=== PATIENT | male | born 1945 | race Native Hawaiian/Other Pacific Islander ===

== ENCOUNTER 2016-08-02 07:45 | Outpatient (CLI) | payer OTHER | END 2016-08-02 19:27 | disposition home or self-care (01) | LOC: LABW 07:45 | PROVIDERS: Internal Medicine Clinical Cardiac Electrophysiology | DX: E78.00 Pure hypercholesterolemia, unspecified (principal) | CPT/HCPCS: 36415; 80061; 80076 ==

== ENCOUNTER 2017-05-15 07:31 | Outpatient (CLI) | payer OTHER | END 2017-05-15 19:07 | disposition home or self-care (01) | LOC: LABW 07:31 | PROVIDERS: Internal Medicine Clinical Cardiac Electrophysiology | DX: E78.00 Pure hypercholesterolemia, unspecified (principal) | CPT/HCPCS: 36415; 80061 ==

== ENCOUNTER 2017-12-09 07:44 | Outpatient (CLI) | payer OTHER ==
[2018-01-20] MEDS ORDERED: METFTAB PO (08:42)
[2018-01-20] MEDS ORDERED: ASA LOW DOSE81 MG PO (08:43)
[2018-01-20] MEDS ORDERED: OMEPRAZOLE40 MG PO (08:44)
[2018-01-20] MEDS ORDERED: LIPITOR10 MG PO (08:44)
[2018-01-20] MEDS ORDERED: ATENOLOL100 M1 PO (08:45)
[2018-01-20] MEDS ORDERED: CARDIZEM60 M1 PO (08:45)
[2018-01-20] MEDS ORDERED: MOBIC15 MG PO (08:46)
[2018-01-20] MEDS ORDERED: XANAX XR1 MG OR (08:48)
== END 2017-12-09 23:10 | disposition home or self-care (01) ==
LOC: LABW 07:44
PROVIDERS: Internal Medicine Clinical Cardiac Electrophysiology
DX: E78.00 Pure hypercholesterolemia, unspecified (principal)
CPT/HCPCS: 36415; 80061

== ENCOUNTER 2018-01-20 10:48 | Outpatient (CLI) | payer OTHER ==
[~2018-01-20 10:48] MED LIST: ASA LOW DOSE81 MG PO; ATENOLOL100 M1 PO; CARDIZEM60 M1 PO; LIPITOR10 MG PO; METFTAB PO; MOBIC15 MG PO; OMEPRAZOLE40 MG PO; XANAX XR1 MG OR
== END 2018-01-20 12:06 | disposition short-term general hospital (02) ==
LOC: AMB 10:48
DX: I63.9 Cerebral infarction, unspecified (principal); R53.1 Weakness
CPT/HCPCS: A0425; A0427

== ENCOUNTER 2018-02-18 09:38 | Emergency (ER) | payer OTHER ==
[~2018-02-18] VITALS: Ht 160 cm; Wt 70.3 kg
[2018-02-18 09:40] VITALS: TEMP 97.9
[2018-02-18 10:18] LABS: SODIUM 139 mmol/L (136-145)
[2018-02-18 10:20] LABS: PLATELET COUNT 191 K/uL (142-355)
[2018-02-18 12:09] VITALS: BP 158/78
== END 2018-02-18 12:09 | disposition home or self-care (01) ==
LOC: ED 09:38
PROVIDERS: Emergency Medicine
DX: R42 Dizziness and giddiness (principal)
CPT/HCPCS: 36415; 80053; 82550; 82553; 84484; 85027; 93005; 99284

== ENCOUNTER 2018-11-08 13:00 | Emergency (ER) | payer OTHER ==
[~2018-11-08] VITALS: Ht 160 cm; Wt 70.3 kg
[2018-11-08] MEDS ORDERED: TESTOSTERON PO (13:15)
[2018-11-08] MEDS ORDERED: VITAMIN D31000 UNIT PO (13:15)
[2018-11-08 13:45] LABS: PLATELET COUNT 219 K/uL (142-355)
[2018-11-08 13:52] LABS: POTASSIUM 3.9 mmol/L (3.6-5.2)
[2018-11-08 14:08] LABS: PARTIAL THROMBOPLASTIN TIME 26.6 SECONDS (24.5-33.6)
[2018-11-08 15:35] VITALS: BP 117/71; TEMP 98.5
== END 2018-11-08 15:40 | disposition home or self-care (01) ==
LOC: ED 13:00
PROVIDERS: Family Medicine
DX: R51 Headache (principal); R42 Dizziness and giddiness; G45.9 Transient cerebral ischemic attack, unspecified
CPT/HCPCS: 80053; 81000; 85027; 85610; 85730; 99283

== ENCOUNTER 2019-05-03 14:20 | Outpatient (CLI) | payer OTHER ==
[~2019-05-03 14:20] MED LIST changes: +TESTOSTERON PO; +VITAMIN D31000 UNIT PO
[2019-05-03 14:52] LABS: PLATELET COUNT 230 K/uL (142-355)
[2019-05-03 15:18] LABS: POTASSIUM 4.9 mmol/L (3.6-5.2)
== END 2019-05-03 19:31 | disposition home or self-care (01) ==
LOC: LAB 14:20
PROVIDERS: Nurse Practitioner Family
DX: Z00.00 Encounter for general adult medical examination without abnormal findings (principal); K21.9 Gastro-esophageal reflux disease without esophagitis; E11.9 Type 2 diabetes mellitus without complications; E78.00 Pure hypercholesterolemia, unspecified; F41.8 Other specified anxiety disorders; I10 Essential (primary) hypertension; N40.0 Benign prostatic hyperplasia without lower urinary tract symptoms
CPT/HCPCS: 80053; 80061; 83036; 84153; 84439; 84443; 85027

== ENCOUNTER 2020-02-09 12:47 | Outpatient (CLI) | payer OTHER | END 2020-02-10 00:02 | disposition home or self-care (01) | LOC: LAB 12:47 | DX: U07.1 COVID-19 (principal); R09.81 Nasal congestion; R51 Headache | CPT/HCPCS: 87635; G2023; U0003 ==

== ENCOUNTER 2020-02-18 16:40 | Emergency (ER) | payer OTHER ==
[~2020-02-18] VITALS: Ht 160 cm; Wt 70.3 kg
[2020-02-18 16:40] VITALS: TEMP 98.8
[2020-02-18 17:15] LABS: PLATELET COUNT 377 K/uL (142-355)
[2020-02-18 17:31] LABS: PARTIAL THROMBOPLASTIN TIME 22.7 SECONDS (24.5-33.6)
[2020-02-18 17:42] LABS: POTASSIUM 3.9 mmol/L (3.6-5.2); SODIUM 134 mmol/L (136-145)
[2020-02-18 20:05] VITALS: BP 150/79
== END 2020-02-18 20:05 | disposition home or self-care (01) ==
LOC: ED 16:40
PROVIDERS: Family Medicine
DX: G45.9 Transient cerebral ischemic attack, unspecified (principal); I63.9 Cerebral infarction, unspecified
CPT/HCPCS: 80053; 81000; 84484; 85027; 85610; 85730; 93005; 99284

== ENCOUNTER 2020-02-23 08:52 | Outpatient (CLI) | payer OTHER | END 2020-02-23 20:11 | disposition home or self-care (01) | LOC: MRI 08:52 | DX: G45.9 Transient cerebral ischemic attack, unspecified (principal); I63.9 Cerebral infarction, unspecified; R47.81 Slurred speech; R51 Headache; R13.10 Dysphagia, unspecified | CPT/HCPCS: A9576 ==

== ENCOUNTER 2020-02-23 21:10 | Emergency (ER) | payer OTHER ==
[~2020-02-23] VITALS: Ht 160 cm; Wt 70.3 kg
[2020-02-23 21:28] LABS: PLATELET COUNT 243 K/uL (142-355)
[2020-02-23 21:33] LABS: POTASSIUM 3.2 mmol/L (3.6-5.2); SODIUM 135 mmol/L (136-145)
[2020-02-23 22:50] VITALS: BP 128/75; TEMP 98.6
== END 2020-02-23 22:50 | disposition home or self-care (01) ==
LOC: ED 21:10
PROVIDERS: Emergency Medicine
DX: I10 Essential (primary) hypertension (principal); R00.0 Tachycardia, unspecified; R42 Dizziness and giddiness
CPT/HCPCS: 36415; 80053; 81000; 82550; 82553; 84484; 85027; 93005; 96374; 96375; 99284; J2060; J2405; J3490

== ENCOUNTER 2020-02-25 19:13 | Emergency (ER) | payer OTHER ==
[~2020-02-25] VITALS: Ht 160 cm; Wt 71.2 kg
[2020-02-25 19:35] VITALS: TEMP 98.5
[2020-02-25 21:59] VITALS: BP 139/68
== END 2020-02-25 22:00 | disposition home or self-care (01) ==
LOC: ED 19:13
DX: I10 Essential (primary) hypertension (principal)
CPT/HCPCS: 99282

== ENCOUNTER 2020-03-15 22:31 | Emergency (ER) | payer OTHER ==
[~2020-03-15] VITALS: Ht 160 cm; Wt 68.0 kg
[2020-03-16 00:04] LABS: PLATELET COUNT 254 K/uL (142-355)
[2020-03-16 00:12] LABS: POTASSIUM 3.9 mmol/L (3.6-5.2); SODIUM 132 mmol/L (136-145)
[2020-03-16 01:45] VITALS: BP 121/65; TEMP 97.7
== END 2020-03-16 01:45 | disposition home or self-care (01) ==
LOC: ED 22:31
PROVIDERS: Emergency Medicine Emergency Medical Services
DX: R42 Dizziness and giddiness (principal); I10 Essential (primary) hypertension
CPT/HCPCS: 36415; 80053; 84443; 84484; 85027; 93005; 96375; 99284; J2405; J3490

== ENCOUNTER 2020-03-16 14:44 | Outpatient (CLI) | payer OTHER | END 2020-03-16 20:01 | disposition home or self-care (01) | LOC: MRI 14:44 | DX: G45.1 Carotid artery syndrome (hemispheric) (principal); I63.9 Cerebral infarction, unspecified ==

== ENCOUNTER 2020-08-04 17:00 | Emergency (ER) | payer OTHER ==
[~2020-08-04] VITALS: Ht 160 cm; Wt 68.0 kg
[2020-08-04 17:43] LABS: PLATELET COUNT 222 K/uL (142-355)
[2020-08-04 17:50] LABS: POTASSIUM 3.6 mmol/L (3.6-5.2); SODIUM 134 mmol/L (136-145)
[2020-08-04 19:15] VITALS: BP 155/81; TEMP 98.1
== END 2020-08-04 19:15 | disposition home or self-care (01) ==
LOC: ED 17:00 → EDBD 17:00 → ED 19:15
PROVIDERS: Family Medicine
DX: R55 Syncope and collapse (principal); I10 Essential (primary) hypertension
CPT/HCPCS: 80053; 81000; 82550; 84484; 85027; 93005; 99283

== ENCOUNTER 2020-08-24 10:30 | Outpatient (CLI) | payer OTHER | END 2020-08-24 22:11 | disposition home or self-care (01) | LOC: EDBD 10:30 → RESP 10:30 | PROVIDERS: ATTEND Specialist | DX: R55 Syncope and collapse (principal) ==

== ENCOUNTER 2020-08-30 14:04 | Emergency (ER) | payer OTHER ==
[~2020-08-30] VITALS: Ht 160 cm; Wt 77.2 kg
[2020-08-30 14:04] VITALS: TEMP 98.5
[2020-08-30 14:35] LABS: PLATELET COUNT 261 K/uL (142-355)
[2020-08-30 14:38] LABS: POTASSIUM 4.2 mmol/L (3.6-5.2); SODIUM 129 mmol/L (136-145)
[2020-08-30 17:03] VITALS: BP 117/611
== END 2020-08-30 17:03 | disposition home or self-care (01) ==
LOC: ED 14:04
PROVIDERS: Family Medicine
DX: I10 Essential (primary) hypertension (principal); E87.1 Hypo-osmolality and hyponatremia
CPT/HCPCS: 36415; 80053; 82550; 82553; 83880; 84484; 85027; 93005; 96360; 96361; 99284

== ENCOUNTER 2020-11-01 12:31 | Day surgery (SDC) | payer OTHER ==
[2020-10-30 09:52] LABS: POTASSIUM 4.6 mmol/L (3.6-5.2)
[2020-10-30 09:57] LABS: PLATELET COUNT 203 K/uL (142-355)
[2020-10-30 10:30] LABS: PARTIAL THROMBOPLASTIN TIME 25.5 SECONDS (24.5-33.6)
== END 2020-11-01 15:10 | disposition home or self-care (01) ==
LOC: OR 12:31
PROVIDERS: ATTEND Internal Medicine Gastroenterology
PROC: 0DB68ZZ Excision of Stomach, Via Natural or Artificial Opening Endoscopic (ICD-10-PCS; principal; 2020-11-01)
PROC: 0D738ZZ Dilation of Lower Esophagus, Via Natural or Artificial Opening Endoscopic (ICD-10-PCS; 2020-11-01)
DX: K21.00 Gastro-esophageal reflux disease with esophagitis, without bleeding (principal); K22.4 Dyskinesia of esophagus; K22.2 Esophageal obstruction; K29.50 Unspecified chronic gastritis without bleeding; R13.19 Other dysphagia; K25.9 Gastric ulcer, unspecified as acute or chronic, without hemorrhage or perforation; Z20.822 Contact with and (suspected) exposure to COVID-19
CPT/HCPCS: 80053; 85027; 85610; 85730; 87635; J2704; U0003

== ENCOUNTER 2020-11-22 11:02 | Day surgery (SDC) | payer OTHER ==
[~2020-11-22] VITALS: Ht 30.5 cm; Wt 0.5 kg
== END 2020-11-22 13:47 | disposition home or self-care (01) ==
LOC: OR 11:02
PROVIDERS: ATTEND Internal Medicine Gastroenterology
PROC: 0DBH8ZZ Excision of Cecum, Via Natural or Artificial Opening Endoscopic (ICD-10-PCS; principal; 2020-11-22)
DX: K63.5 Polyp of colon (principal); K57.30 Diverticulosis of large intestine without perforation or abscess without bleeding; K64.8 Other hemorrhoids; Z20.822 Contact with and (suspected) exposure to COVID-19
CPT/HCPCS: 87635; J2001; J2704; U0003

== ENCOUNTER 2021-03-28 11:31 | Outpatient (CLI) | payer OTHER | END 2021-03-28 21:52 | disposition home or self-care (01) | LOC: US 11:31 | PROVIDERS: ATTEND Nurse Practitioner Family | DX: R13.19 Other dysphagia (principal) ==

== ENCOUNTER 2021-05-09 11:03 | Day surgery (SDC) | payer OTHER ==
[2021-05-07 14:32] LABS: PLATELET COUNT 217 K/uL (142-355)
[2021-05-07 14:45] LABS: PARTIAL THROMBOPLASTIN TIME 25.7 SECONDS (24.5-33.6)
[2021-05-07 15:02] LABS: POTASSIUM 3.9 mmol/L (3.6-5.2)
[~2021-05-09] VITALS: Ht 152.4 cm; Wt 0.5 kg
== END 2021-05-09 13:38 | disposition home or self-care (01) ==
LOC: OR 11:03
PROVIDERS: ATTEND Internal Medicine Gastroenterology
PROC: 0DB68ZZ Excision of Stomach, Via Natural or Artificial Opening Endoscopic (ICD-10-PCS; principal; 2021-05-09)
PROC: 0DB88ZZ Excision of Small Intestine, Via Natural or Artificial Opening Endoscopic (ICD-10-PCS; 2021-05-09)
PROC: 0D738ZZ Dilation of Lower Esophagus, Via Natural or Artificial Opening Endoscopic (ICD-10-PCS; 2021-05-09)
DX: K22.2 Esophageal obstruction (principal); K21.00 Gastro-esophageal reflux disease with esophagitis, without bleeding; K29.00 Acute gastritis without bleeding; R13.19 Other dysphagia; Z20.822 Contact with and (suspected) exposure to COVID-19
CPT/HCPCS: 80053; 85027; 85610; 85730; 87635; J2704; U0003

== ENCOUNTER 2021-05-12 14:47 | Emergency (ER) | payer OTHER ==
[~2021-05-12] VITALS: Ht 167.6 cm; Wt 72.1 kg
[2021-05-12 15:18] LABS: PLATELET COUNT 232 K/uL (142-355)
[2021-05-12 15:20] LABS: POTASSIUM 4.4 mmol/L (3.6-5.2)
[2021-05-12 15:30] LABS: PARTIAL THROMBOPLASTIN TIME 24.6 SECONDS (24.5-33.6)
[2021-05-12 16:35] VITALS: BP 139/75; TEMP 98.2
== END 2021-05-12 16:35 | disposition home or self-care (01) ==
LOC: ED 14:47
PROVIDERS: Emergency Medicine
DX: G45.9 Transient cerebral ischemic attack, unspecified (principal); I10 Essential (primary) hypertension; I69.351 Hemiplegia and hemiparesis following cerebral infarction affecting right dominant side; I69.320 Aphasia following cerebral infarction
CPT/HCPCS: 80053; 83880; 84484; 85027; 85379; 85610; 85730; 93005; 99284

== ENCOUNTER 2021-08-03 11:40 | Emergency (ER) | payer OTHER ==
[~2021-08-03] VITALS: Ht 160 cm; Wt 72.1 kg
[2021-08-03 11:55] VITALS: TEMP 97.5
[2021-08-03 13:00] VITALS: BP 137/79
== END 2021-08-03 13:03 | disposition home or self-care (01) ==
LOC: ED 11:40
PROC: 2W3RX1Z Immobilization of Left Lower Leg using Splint (ICD-10-PCS; principal; 2021-08-03)
DX: S92.355A Nondisplaced fracture of fifth metatarsal bone, left foot, initial encounter for closed fracture (principal); W10.8XXA Fall (on) (from) other stairs and steps, initial encounter; Y92.89 Other specified places as the place of occurrence of the external cause
CPT/HCPCS: 99283; J1885

== ENCOUNTER 2022-02-28 10:58 | Outpatient (CLI) | payer OTHER | END 2022-02-28 19:14 | disposition home or self-care (01) | LOC: RESP 10:58 | PROVIDERS: ATTEND Psychiatry & Neurology Neurology | DX: R47.01 Aphasia (principal); R53.1 Weakness; R55 Syncope and collapse ==

== ENCOUNTER 2022-03-06 11:04 | Outpatient (CLI) | payer OTHER | END 2022-03-06 23:25 | disposition home or self-care (01) | LOC: US 11:04 → MRI 11:04 → US 23:25 | PROVIDERS: ATTEND Psychiatry & Neurology Neurology | DX: R47.01 Aphasia (principal); R53.1 Weakness; R55 Syncope and collapse ==

== ENCOUNTER 2022-03-07 14:44 | Outpatient (CLI) | payer OTHER | END 2022-03-07 19:26 | disposition home or self-care (01) | LOC: MRI 14:44 | PROVIDERS: ATTEND Psychiatry & Neurology Neurology | DX: R47.01 Aphasia (principal); R53.1 Weakness; R55 Syncope and collapse ==